=== PATIENT | female | born 1960 ===

== ENCOUNTER 2017-05-18 06:41 | Emergency (ER) | payer BC ==
--- NOTE | 2017-05-18 07:01 | Emergency Department Record ---
History of Present Illness - General Chief Complaint: Cough Stated Complaint: COUGHING/ASTHMA Time Seen by Provider: 05/18/17 06:55 Source: Patient Mode of Arrival: Ambulatory Limitations: No limitations - History of Present Illness Initial Comments: 56 yo female presents to ED for evaluation of cough and wheezing symptoms that began last night. Patient reports that she moved into a new apartment, was doing a lot of cleaning with numerous chemicals yesterday that has resulted in wheezing and cough symptoms. Patient denies fevers, chills, or recent illness. Patient also reports similar symptoms 1 year ago in [place] resulting from "possible black mold". Patient reports that she left her nebulizer in [place] as well. MD Complaint: Cough Onset/Timin -: Days(s) Severity: Moderate Consistency: Constant Improves With: Nothing Worsens With: Deep breaths Context: Other Associated Symptoms: Denies other symptoms Treatments Prior to Arrival: None - Related Data Home Medications Medication Instructions Recorded Confirmed Last Taken Albuterol Sulfate [Ventolin Hfa] 1 - 2 puff IH .EVERY 4-6 HOURS PRN 05/18/17 Unknown Fluoxetine HCl [Prozac] 10 mg PO DAILY 05/18/17 05/18/17 Unknown Hydrochlorothiazide [Hctz 12.5MG] 25 mg PO DAILY 05/18/17 05/18/17 Unknown Levothyroxine Sodium [Synthroid] 50 mcg PO DAILY 05/18/17 05/18/17 Unknown Melatonin 10 mg PO QHS 05/18/17 05/18/17 Unknown Previous Rx's Medication Instructions Recorded Albuterol Sulfate [Proair Hfa] 1 - 2 puff IH .EVERY 4-6 HOURS PRN 05/18/17 #1 inhaler Prednisone [Prednisone 20Mg] 20 mg PO TID #15 tab 05/18/17 Allergies Allergy/AdvReac Type Severity Reaction Status Date / Time Sulfa (Sulfonamide Allergy ITCHING Verified 05/18/17 06:48 Antibiotics) Review of Systems Constitutional: Denies: Chills, Fever, Malaise, Night sweats Eyes: Denies: Eye discharge, Eye pain ENT: Denies: Congestion, Ear pain, Epistaxis Respiratory: Reports: Cough. Denies: Dyspnea, Hemoptysis Cardiovascular: Denies: Chest pain, Dyspnea on exertion Endocrine: Denies: Fatigue, Heat or cold intolerance Gastrointestinal: Denies: Abdominal pain, Nausea, Vomiting Genitourinary: Denies: Incontinence, Retention Musculoskeletal: Denies: Arthralgia, Back pain, Gout, Joint swelling Skin: Denies: Bruising, Change in color Neurological: Denies: Abnormal gait, Confusion, Headache, Seizure Psychiatric: Denies: Anxiety Hematological/Lymphatic: Denies: Anemia, Blood Clots Physical Exam - General General Appearance: Alert, Oriented x3, Cooperative, Mild distress Limitations: No limitations - Head Head exam: Atraumatic, Normocephalic, Normal inspection Head exam detail: negative: Abrasion, Contusion, Abel's sign, General tenderness, Hematoma, Laceration - Eye Eye exam: Normal appearance. negative: Conjunctival injection, Periorbital swelling, Periorbital tenderness, Scleral icterus - ENT Ear exam: negative: Auricular hematoma, Auricular trauma Nasal Exam: negative: Active bleeding, Discharge, Dried blood, Foreign body Mouth exam: negative: Drooling, Laceration, Muffled voice, Tongue elevation - Neck Neck exam: Normal inspection. negative: Meningismus, Tenderness - Respiratory Respiratory exam: Normal lung sounds bilaterally. negative: Rales, Respiratory distress, Rhonchi, Stridor - Cardiovascular Cardiovascular Exam: Regular rate, Normal rhythm, Normal heart sounds - GI/Abdominal GI/Abdominal exam: Soft. negative: Rebound, Rigid, Tenderness - Rectal Rectal exam: Deferred - exam: Deferred - Extremities Extremities exam: Normal inspection. negative: Pedal edema, Tenderness - Back Back exam: Denies: CVA tenderness (R), CVA tenderness (L) - Neurological Neurological exam: Alert, Normal gait, Oriented X3 - Psychiatric Psychiatric exam: Normal affect, Normal mood - Skin Skin exam: Normal color. negative: Abrasion Type of lesion: negative: abrasion Course - Reevaluation(s) Reevaluation #1: 05/18/17 06:58 Symptoms appear c/w acute bronchospsam, will prescribe Albuterol and Prednisone as directed for her symptoms. Patient appears stable for discharge at this time. Disposition Disposition: Discharge Clinical Impression: Bronchospasm Disposition: Home, Self-Care Condition: (2) Stable Instructions: Bronchospasm (ED) Additional Instructions: Return to ED if your symptoms worsen or if you have any concerns. Prednisone and Albuterol as directed. Follow-up with your family doctor in 3-5 days as directed. Prescriptions: Albuterol Sulfate [Proair Hfa] 1 - 2 puff IH .EVERY 4-6 HOURS PRN #1 inhaler PRN Reason: Difficulty In Breathing Prednisone [Prednisone 20Mg] 20 mg PO TID #15 tab Forms: Patient Portal Access Time of Disposition: 07:01 Quality - Quality Measures Quality Measures: N/A - Blood Pressure Screening Does Patient Have Any of the Following: No Blood Pressure Classification: Hypertensive Reading Systolic Measurement: 142 Diastolic Measurement: 94 Screening for High Blood Pressure: < First Hypertensive BP, F/U Documented > [ [id number]] First Hypertensive Follow-up Interventions: Referral to alternative/primary care provider.
== END 2017-05-18 07:22 | disposition home or self-care (01) ==
LOC: ER 06:41
DX: J98.01 Acute bronchospasm (principal)
CPT/HCPCS: 99282